=== PATIENT | male | born 1970 | race Caucasian/White ===

== ENCOUNTER 2017-06-05 19:14 | Emergency (ER) | payer MEDICAID ==
[~2017-06-05] VITALS: Ht 177.8 cm; Wt 69.2 kg
[~2017-06-05 19:14] MED LIST: AMPH30CA3 PO; ARIP5TAB4 PO; LORA0.5T PO; ONDA4TAB59 PO; VENL150C58 PO; VENL75CA61 PO
[2017-06-05] MEDS ORDERED: AMOX-580 PO (21:28)
[2017-06-05] MEDS ORDERED: amox tr/potassium clavulanate 875/125mg TAB PO ONE (21:30)
[2017-06-05 21:39] VITALS: BP 109/71
== END 2017-06-05 21:43 | disposition home or self-care (01) ==
LOC: ER 19:14
DX: J32.9 Chronic sinusitis, unspecified (principal); G89.29 Other chronic pain; Z86.14 Personal history of Methicillin resistant Staphylococcus aureus infection; Z98.890 Other specified postprocedural states; Z79.899 Other long term (current) drug therapy; Z88.8 Allergy status to other drugs, medicaments and biological substances
CPT/HCPCS: 99283

== ENCOUNTER 2017-12-08 22:34 | Emergency (ER) | payer MEDICAID ==
[~2017-12-08] VITALS: Ht 180.3 cm; Wt 67.8 kg
[2017-12-08 22:57] VITALS: BP 110/76
[2017-12-08] MEDS ORDERED: CEPH-572 PO (23:29)
[2017-12-08] MEDS ORDERED: SULF1TAB49 PO (23:29)
[2017-12-08] MEDS ORDERED: acetaminophen 325mg tablet PO ONE (23:30)
[2017-12-08] MEDS ORDERED: sulfamethoxazole/trimethoprim DS (800/160mg) tablet PO ONE (23:30)
[2017-12-08] MEDS ORDERED: TETanus/Pertussis (Acell)/Diphther VAC/PF (Tdap-Adult) 0.5ml syringe IM ONE (23:30)
== END 2017-12-08 23:46 | disposition home or self-care (01) ==
LOC: ER 22:35
DX: L03.113 Cellulitis of right upper limb (principal); G89.29 Other chronic pain; Z86.14 Personal history of Methicillin resistant Staphylococcus aureus infection; Z98.890 Other specified postprocedural states; Z88.8 Allergy status to other drugs, medicaments and biological substances; Z79.899 Other long term (current) drug therapy
CPT/HCPCS: 90471; 90715; 99283

== ENCOUNTER 2019-03-10 05:56 | Emergency (ER) | payer MEDICAID ==
[~2019-03-10] VITALS: Ht 177.8 cm; Wt 70.5 kg
[2019-03-10] MEDS ORDERED: normal saline 1000ML IV soln IVB ONE (06:40)
[2019-03-10] MEDS ORDERED: ondansetron/PF 4mg/2ml inj IV ONE (06:40)
[2019-03-10] MEDS ORDERED: morphine 4 MG/ML inj SYRINge IV ONE (06:40)
[2019-03-10] MEDS ORDERED: iohexol 300mg/ml 100ml inj. ONE (06:46)
[2019-03-10 06:50] LABS: CLARITY,URINE CLEAR (Clear); COLOR,URINE YELLOW (Yellow); GLUCOSE, URINE NEGATIVE (Neg); KETONES,URINE NEGATIVE (Neg); LEUKOCYTE ESTERASE ,URINE NEGATIVE (Neg); NITRITES, URINE NEGATIVE (Neg); OCCULT BLOOD,URINE TRACE-LYSED (Neg); PH,URINE 5.5 (4.8-8.0); PROTEIN,URINE NEGATIVE (Neg); UROBILINOGEN,URINE 0.2 E.U/dL (0.2-1.0)
[2019-03-10 06:56] LABS: URINE AMPHETAMINE SCREEN POSITIVE (Neg); URINE BARBITUATE SCREEN NEGATIVE (Neg); URINE BENZODIAZEPINES SCREEN NEGATIVE (Neg); URINE CANNABINOID SCREEN POSITIVE (Neg); URINE COCAINE SCREEN NEGATIVE (Neg); URINE METHADONE SCREEN NEGATIVE (Neg); URINE OPIATE SCREEN NEGATIVE (Neg); URINE PHENCYCLIDINE SCREEN NEGATIVE (Neg)
[2019-03-10 07:00] LABS: UA COLLECTION TYPE VOIDED
[2019-03-10 07:01] LABS: HYALINE CASTS 0-3 /LPF (NEGATIVE); MUCUS STRANDS FEW /LPF (Neg); SQUAMOUS EPITHELIAL CELL,UR FEW /LPF (FEW)
[2019-03-10 07:03] LABS: BACTERIA,URINE FEW /HPF (Neg)
[2019-03-10 07:04] LABS: RBC,URINE 0-2 /HPF (0-2); WBC,URINE 0-4 /HPF (0-4)
[2019-03-10 07:09] LABS: BASOPHILS # (AUTO) 0.1 X10'3 (0-0.2); BASOPHILS % (AUTO) 1.2 % (0-1); EOSINOPHILS % (AUTO) 0.1 % (0-6); HEMATOCRIT 44.9 % (42.0-52.0); HEMOGLOBIN 15.3 g/dl (14.0-17.9); LYMPHOCYTES # (AUTO) 1.1 X10'3 (1.1-4.8); LYMPHOCYTES % (AUTO) 15.8 % (21-51); MEAN CORPUSCULAR HEMOGLOBIN 31.1 PG (27.0-31.0); MEAN CORPUSCULAR HGB CONC 34.1 g/dL (33.0-36.5); MEAN CORPUSCULAR VOLUME 91.3 FL (78-98); MEAN PLATELET VOLUME 9.9 FL (7.4-10.4); MONOCYTES # (AUTO) 0.4 X10'3 (0-0.9); MONOCYTES % (AUTO) 5.6 % (2-12); NEUTROPHILS # (AUTO) 5.6 X10'3 (1.8-7.7); NEUTROPHILS % (AUTO) 77.3 % (42-75); PLATELET COUNT 137 X10'3 (140-440); RED BLOOD COUNT 4.92 X10'6 (4.70-6.10); RED CELL DISTRIBUTION WIDTH 13.2 % (11.5-14.5); WHITE BLOOD COUNT 7.2 X10'3 (4.5-11.0)
[2019-03-10 07:22] LABS: ALANINE AMINOTRANSFERASE 55 U/L (12-78); ALBUMIN 4.1 G/DL (3.4-5.0); ALBUMIN/GLOBULIN RATIO 1.1 (1.1-1.5); ALKALINE PHOSPHATASE 89 IU/L (46-116); ANION GAP 10 (8-16); ASPARTATE AMINO TRANSFERASE 33 U/L (10-37); BILIRUBIN,TOTAL 0.3 MG/DL (0.1-1.0); BLOOD UREA NITROGEN 19 MG/DL (7-18); BUN/CREATININE RATIO 15.2 (5.4-32.0); CHLORIDE 107 MMOL/L (99-107); CREATININE 1.25 MG/DL (0.60-1.10); ETHANOL 0.129 GM/DL (0.0-0.010); GLUCOSE 107 MG/DL (70-104); POTASSIUM 4.2 MMOL/L (3.5-5.1); SODIUM 145 MMOL/L (135-145); TOTAL CARBON DIOXIDE 28.1 MMOL/L (24-32); eGFR 61 ML/MIN
--- NOTE | 2019-03-10 07:51 | NUR ---
[facility] AT BEDSIDE TAKING REPORT FROM ASS[facility]ULT NOW.
[2019-03-10 09:22] VITALS: BP 114/64
== END 2019-03-10 09:26 | disposition home or self-care (01) ==
LOC: ER 06:02
DX: S20.211A Contusion of right front wall of thorax, initial encounter (principal); S50.01XA Contusion of right elbow, initial encounter; F10.920 Alcohol use, unspecified with intoxication, uncomplicated; F12.90 Cannabis use, unspecified, uncomplicated; F15.10 Other stimulant abuse, uncomplicated; G89.29 Other chronic pain; F17.200 Nicotine dependence, unspecified, uncomplicated; Z88.8 Allergy status to other drugs, medicaments and biological substances; Z79.899 Other long term (current) drug therapy; Y04.0XXA Assault by unarmed brawl or fight, initial encounter; Y93.89 Activity, other specified; Y92.89 Other specified places as the place of occurrence of the external cause; Y99.9 Unspecified external cause status; Y90.9 Presence of alcohol in blood, level not specified
CPT/HCPCS: 71260; 73080; 74177; 80053; 80305; 80320; 81001; 85025; 96374; 96375; 99284; J2270; J2405; J7030; Q9967

== ENCOUNTER 2022-01-19 17:49 | Emergency (ER) | payer MEDICAID ==
[~2022-01-19] VITALS: Ht 177.8 cm; Wt 77.3 kg
[~2022-01-19 17:49] MED LIST changes: -AMPH30CA3 PO; -ARIP5TAB4 PO; +HYDR-3686 PO; +KEN0.1O TP; -LORA0.5T PO; +NICO-907 BC; +TRAM50TA2 PO; +TRAZ-251 PO; -VENL150C58 PO
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
[2022-01-19] MEDS ORDERED: ALB0.5UD (21:31)
[2022-01-19] MEDS ORDERED: OLANZapine 2.5MG tablet PO SCH (22:20)
[2022-01-19 22:58] VITALS: BP 136/95
[2022-01-20] MEDS ORDERED: OLANZapine 2.5MG tablet PO SCH (08:00)
== END 2022-01-19 23:00 | disposition home or self-care (01) ==
LOC: ER 17:50
DX: R44.3 Hallucinations, unspecified (principal); G89.29 Other chronic pain; F31.9 Bipolar disorder, unspecified; F12.10 Cannabis abuse, uncomplicated; Z86.14 Personal history of Methicillin resistant Staphylococcus aureus infection; Z87.19 Personal history of other diseases of the digestive system; Z59.00 Homelessness unspecified; Z79.899 Other long term (current) drug therapy
CPT/HCPCS: 99283

== ENCOUNTER 2022-01-19 23:39 | Emergency (ER) | payer MEDICAID ==
[~2022-01-19] VITALS: Ht 180.3 cm; Wt 77.3 kg
[~2022-01-19 23:39] MED LIST changes: +ALB0.5UD
--- NOTE | 2022-01-19 23:48 | NUR ---
[facility] CONTACTED FOR PT SUPPOSED INGESTION ERROR OF 20 ATARAX. THEY RECOMMEND SIX HOUR OBSERVATION. WATCH EKG IRREGULARITIES AND ALSO AGITATION/BEHAVIORAL HEALTH DIRECTOR DEPRESSION. GET AN EKG NOW AND A REPEAT LATER.
[2022-01-20 02:24] LABS: URINE AMPHETAMINE SCREEN POSITIVE (Neg); URINE BARBITUATE SCREEN NEGATIVE (Neg); URINE BENZODIAZEPINES SCREEN POSITIVE (Neg); URINE CANNABINOID SCREEN NEGATIVE (Neg); URINE COCAINE SCREEN NEGATIVE (Neg); URINE METHADONE SCREEN NEGATIVE (Neg); URINE PHENCYCLIDINE SCREEN NEGATIVE (Neg)
[2022-01-20 04:29] VITALS: BP 100/60
== END 2022-01-20 04:31 | disposition home or self-care (01) ==
LOC: ER 23:40
DX: T88.7XXA Unspecified adverse effect of drug or medicament, initial encounter (principal); T50.995A Adverse effect of other drugs, medicaments and biological substances, initial encounter; G89.29 Other chronic pain; F31.9 Bipolar disorder, unspecified; Z87.19 Personal history of other diseases of the digestive system; Z79.899 Other long term (current) drug therapy; Z88.8 Allergy status to other drugs, medicaments and biological substances; Z79.1 Long term (current) use of non-steroidal anti-inflammatories (NSAID); Y92.89 Other specified places as the place of occurrence of the external cause
CPT/HCPCS: 80305; 93005; 99284